=== PATIENT | female | born 1995 | race Caucasian/White ===

== ENCOUNTER 2024-07-19 08:28 | Emergency (ER) | payer MEDICAID ==
[~2024-07-19] VITALS: Ht 162.6 cm; Wt 60.9 kg
[2024-07-19 08:47] VITALS: BP 100/64; PULSE 94; RESP 15; O2SAT 99
[2024-07-19] MEDS: LIDOcaine 1% W/epiNEPHrine 1:100,000 20ml vial SQ ONE (10:20)
[2024-07-19] MEDS ORDERED: DOXY-1 PO (10:36)
[2024-07-19 11:16] VITALS: TEMP 98.8
== END 2024-07-19 11:18 | disposition home or self-care (01) ==
LOC: ER 08:29
DX: L02.01 Cutaneous abscess of face (principal)
CPT/HCPCS: 10060; 99283; A6407

== ENCOUNTER 2024-10-31 13:16 | Inpatient (IN) | payer MEDICAID ==
[~2024-10-31] VITALS: Ht 162.6 cm; Wt 68.2 kg
[2024-10-31] MEDS: acetaminophen 325mg tablet PO ONE (13:57)
[2024-10-31] MEDS: normal saline 1000ml 1,000 ML IV ONE (14:02)
[2024-10-31] MEDS: ketorolac trometh 30MG/ML vial 30 MG/ML VIAL IV ONE (14:20)
[2024-10-31 14:28] LABS: BASOPHILS % (AUTO) 0.2 % (0-1); EOSINOPHILS % (AUTO) 0 % (0-6); HEMATOCRIT 39.6 % (35.0-45.0); HEMOGLOBIN 13.1 g/dl (12.0-16.0); LYMPHOCYTES # (AUTO) 0.6 X10'3 (1.1-4.8); LYMPHOCYTES % (AUTO) 4.3 % (21-51); MEAN CORPUSCULAR HEMOGLOBIN 28.2 PG (27.0-31.0); MEAN CORPUSCULAR HGB CONC 33.2 g/dL (33.0-36.5); MEAN CORPUSCULAR VOLUME 84.9 FL (78-98); MEAN PLATELET VOLUME 8.1 FL (7.4-10.4); MONOCYTES # (AUTO) 0.9 X10'3 (0-0.9); MONOCYTES % (AUTO) 6.6 % (2-12); NEUTROPHILS # (AUTO) 12.8 X10'3 (1.8-7.7); NEUTROPHILS % (AUTO) 88.9 % (42-75); PLATELET COUNT 196 X10'3 (140-440); RED BLOOD COUNT 4.67 X10'6 (4.20-5.60); RED CELL DISTRIBUTION WIDTH 15.8 % (11.5-14.5); WHITE BLOOD COUNT 14.4 X10'3 (4.5-11.0)
[2024-10-31 14:32] LABS: ALANINE AMINOTRANSFERASE 18 U/L (12-78); ALBUMIN 3.3 G/DL (3.4-5.0); ALBUMIN/GLOBULIN RATIO 0.8 (1.1-1.5); ALKALINE PHOSPHATASE 101 IU/L (46-116); ANION GAP 6 (8-16); ASPARTATE AMINO TRANSFERASE 12 U/L (10-37); BILIRUBIN,TOTAL 0.5 MG/DL (0.1-1.0); BLOOD UREA NITROGEN 12 MG/DL (7-18); BUN/CREATININE RATIO 14.8 (10.0-20.0); CALCIUM 8.8 MG/DL (8.5-10.1); CHLORIDE 99 MMOL/L (99-107); CREATININE 0.81 MG/DL (0.40-0.90); GLUCOSE 107 MG/DL (70-104); LIPASE 19 U/L (16-77); POTASSIUM 4.1 MMOL/L (3.5-5.1); SODIUM 132 MMOL/L (135-145); TOTAL CARBON DIOXIDE 27.3 MMOL/L (24-32); TOTAL PROTEIN 7.7 G/DL (6.4-8.2); eCRCL 88 ML/MIN; eGFR 83 ML/MIN
[2024-10-31] MEDS: HYDROmorphone 1 mg/ml syringe IV ONE (14:58)
[2024-10-31] MEDS: normal saline 1000ML IV soln IVB ONE (15:13)
[2024-10-31 15:37] LABS: URINE HCG NEGATIVE (NEG)
[2024-10-31 15:38] LABS: BILIRUBIN,URINE NEGATIVE (Neg); CLARITY,URINE CLOUDY (Clear); COLOR,URINE YELLOW (Yellow); GLUCOSE, URINE NEGATIVE (Neg); KETONES,URINE NEGATIVE (Neg); LEUKOCYTE ESTERASE ,URINE TRACE (Neg); NITRITES, URINE NEGATIVE (Neg); OCCULT BLOOD,URINE TRACE-INTACT (Neg); PH,URINE 6.5 (4.8-8.0); PROTEIN,URINE 30 mg/dl (Neg)
[2024-10-31 15:40] LABS: UA COLLECTION TYPE NON-SPECIFIED
[2024-10-31] MEDS ORDERED: ondansetron/PF 4mg/2ml inj IV PRN (15:40)
[2024-10-31] MEDS ORDERED: magnesium sulf-water 2g/50mL 50 ML IV PRN (15:40)
[2024-10-31] MEDS ORDERED: potassium Cl 20 mEq SR tablet PO PRN ×2 (15:40)
[2024-10-31] MEDS ORDERED: HYDROcodone/acetaminophen 10/325mg tab PO PRN (15:40)
[2024-10-31] MEDS ORDERED: potassium Cl 40MEQ/1/2NS 520ml 520 ML IV PRN (15:40)
[2024-10-31] MEDS ORDERED: HYDROcodone/acetaminophen 5mg/325mg tablet PO PRN (15:40)
[2024-10-31] MEDS ORDERED: magnesium sulf-water 4G/100mL 100 ML IV PRN (15:40)
[2024-10-31] MEDS ORDERED: acetaminophen 325mg tablet PO PRN (15:40)
[2024-10-31] MEDS ORDERED: magnesium Cl slow-release 64mg tablet PO PRN (15:40)
[2024-10-31] MEDS ORDERED: morphine 2 MG/ML inj. syringe IV PRN ×2 (15:40)
[2024-10-31 15:45] LABS: BACTERIA,URINE 2+ /HPF (Neg); RBC,URINE 0-2 /HPF (0-2); WBC,URINE 50-100 /HPF (0-4)
[2024-10-31 15:46] LABS: MUCUS STRANDS FEW /LPF (Neg); SQUAMOUS EPITHELIAL CELL,UR MANY /LPF (FEW); TRANSITIONAL EPI CELLS,URINE FEW /HPF
[2024-10-31] MEDS: normal saline 1000ml 1,000 ML IV SCH (16:04)
[2024-10-31] MEDS: CefTRIAXone 2gm/D5W 50ml BAG 50 ML IV ONE (16:04)
[2024-10-31] MEDS: nicotine 14mg patch - 24hr TD SCH (16:05)
[2024-10-31] MEDS ORDERED: NO HOME MEDS (16:09)
[2024-10-31 17:07] LABS: URINE AMPHETAMINE SCREEN POSITIVE (Neg); URINE BARBITUATE SCREEN NEGATIVE (Neg); URINE BENZODIAZEPINES SCREEN NEGATIVE (Neg); URINE CANNABINOID SCREEN NEGATIVE (Neg); URINE COCAINE SCREEN NEGATIVE (Neg); URINE METHADONE SCREEN NEGATIVE (Neg); URINE OPIATE SCREEN NEGATIVE (Neg); URINE PHENCYCLIDINE SCREEN NEGATIVE (Neg)
[2024-10-31 17:30] VITALS: BP 110/61; PULSE 98; RESP 18; TEMP 98.3; O2SAT 94
[2024-10-31 20:00] VITALS: RESP 18; O2SAT 94
[2024-10-31] MEDS: heparin, porcine 5000 units/ml vial SQ SCH (20:28)
[2024-10-31 22:00] VITALS: BP 110/72; PULSE 98; RESP 19; TEMP 98; O2SAT 92
[2024-11-01] MEDS: acetaminophen 325mg tablet PO PRN (00:08)
[2024-11-01 06:00] VITALS: BP 141/83; PULSE 103; RESP 16; TEMP 98.1; O2SAT 99
[2024-11-01 08:00] VITALS: RESP 18; O2SAT 97
[2024-11-01] MEDS: CefTRIAXone 2gm/D5W 50ml BAG 50 ML IV SCH (10:40)
[2024-11-01 13:22] LABS: BASOPHILS % (AUTO) 0.2 % (0-1); EOSINOPHILS % (AUTO) 0.2 % (0-6); HEMATOCRIT 32.3 % (35.0-45.0); HEMOGLOBIN 10.8 g/dl (12.0-16.0); LYMPHOCYTES # (AUTO) 1.1 X10'3 (1.1-4.8); LYMPHOCYTES % (AUTO) 11.7 % (21-51); MEAN CORPUSCULAR HEMOGLOBIN 28.4 PG (27.0-31.0); MEAN CORPUSCULAR HGB CONC 33.5 g/dL (33.0-36.5); MEAN CORPUSCULAR VOLUME 84.7 FL (78-98); MEAN PLATELET VOLUME 7.7 FL (7.4-10.4); MONOCYTES # (AUTO) 1.1 X10'3 (0-0.9); MONOCYTES % (AUTO) 11.9 % (2-12); NEUTROPHILS # (AUTO) 7.1 X10'3 (1.8-7.7); PLATELET COUNT 199 X10'3 (140-440); RED BLOOD COUNT 3.82 X10'6 (4.20-5.60); RED CELL DISTRIBUTION WIDTH 15.5 % (11.5-14.5); WHITE BLOOD COUNT 9.4 X10'3 (4.5-11.0)
[2024-11-01 13:32] LABS: ALBUMIN 2.5 G/DL (3.4-5.0); ANION GAP 5 (8-16); BLOOD UREA NITROGEN 7 MG/DL (7-18); CALCIUM 7.9 MG/DL (8.5-10.1); CHLORIDE 101 MMOL/L (99-107); CREATININE 0.78 MG/DL (0.40-0.90); GLUCOSE 101 MG/DL (70-104); POTASSIUM 3.5 MMOL/L (3.5-5.1); SODIUM 133 MMOL/L (135-145); TOTAL CARBON DIOXIDE 27.5 MMOL/L (24-32); eCRCL 91 ML/MIN; eGFR 87 ML/MIN
[2024-11-01 17:40] VITALS: BP 120/76; PULSE 104; RESP 22; TEMP 100.2; O2SAT 100
[2024-11-01 19:45] VITALS: RESP 14; O2SAT 95
== END 2024-11-01 21:10 | disposition left against medical advice (07) | DRG 463 ==
LOC: ER 13:17 → ED HOLD 15:43 → ORTHO 4S 17:35
PROVIDERS: ADMIT Internal Medicine; ATTEND Internal Medicine
DX: N12 Tubulo-interstitial nephritis, not specified as acute or chronic (principal); E87.1 Hypo-osmolality and hyponatremia; F17.210 Nicotine dependence, cigarettes, uncomplicated; Z87.440 Personal history of urinary (tract) infections; Z90.49 Acquired absence of other specified parts of digestive tract; Z79.899 Other long term (current) drug therapy
CPT/HCPCS: 36415; 80048; 80053; 80305; 81001; 81025; 83605; 83690; 85025; 87040; 87081; 87088; 96361; 96365; 96375; 99285; G0378; J0696; J1171; J1644; J1885; J7030